=== PATIENT | female | born 1980 | race African-American/Black ===

== ENCOUNTER 2016-06-17 14:16 | Emergency (ER) | payer OTHER ==
[~2016-06-17 14:16] MED LIST: ATOR40TA59 PO; CEFU500T46 PO; DEXT30TA2 PO; ELET40TA PO; HYDR-963 PO; MEDR150D3 IM; MELO-150 PO; MICO1KIT79 VG; ONDA4TAB7 PO; OXYC5TAB PO; SERT50TA PO; TIZA4TAB PO
[2016-06-17] MEDS ORDERED: ONDA4TAB10 PO (14:40)
[2016-06-17] MEDS ORDERED: ONDANSETRON ODT 4 MG TAB.RAPDIS ONE (14:45)
[2016-06-17] MEDS: ONDANSETRON ODT 4 MG TAB.RAPDIS PO ONE (14:48)
--- NOTE | 2016-06-17 15:08 | ED.ADGEN ---
Past History Past Medical History: Hypothyroid, Migraines, Other Past Surgical History: Other Smoking: Cigarettes, Less than 1pk/day Alcohol Use: None Drug Use: None Adult General HPI HPI Patient is a 36-year-old female presents emergency department complaining of a four-day history of nausea, vomiting, diarrhea. This started after eating what she believes was some bad [place] food. She denies any fever or chills. Patient has been taking [id number] remedies without satisfactory relief. Review of Systems Review of Systems Constitutional: Denies fever or chills [] Eyes: Denies change in visual acuity, redness, or eye pain [] HENT: Denies nasal congestion or sore throat [] Respiratory: Denies cough or shortness of breath [] Cardiovascular: No additional information not addressed in HPI [] GI: Denies abdominal pain, nausea, vomiting, bloody stools or diarrhea [] : Denies dysuria or hematuria [] Musculoskeletal: Denies back pain or joint pain [] Integument: Denies rash or skin lesions [] Neurologic: Denies headache, focal weakness or sensory changes [] Endocrine: Denies polyuria or polydipsia [] Current Medications Current Medications Current Medications Medications (Trade) Dose Ordered Sig/Neena Start Time Stop Time Status Last Admin Dose Admin Ondansetron HCl (Zofran Odt) 4 mg 1X ONCE 06/17/16 14:45 06/17/16 14:55 DC 06/17/16 14:48 4 MG Allergies Allergies Allergies Coded Allergies Type Severity Reaction Last Updated Verified mold Allergy Intermediate Swelling 06/17/16 Yes pecan nut Allergy Intermediate Itching 06/17/16 Yes tramadol Allergy Intermediate Rash 07/21/14 Yes coconut oil Allergy Mild Itching 07/21/14 Yes strawberry Allergy Mild Itching 07/21/14 Yes Physical Exam Physical Exam Constitutional: Well developed, well nourished, no acute distress, non-toxic appearance. [] HENT: Normocephalic, atraumatic, bilateral external ears normal, oropharynx moist, no oral exudates, nose normal. [] Eyes: PERRLA, EOMI, conjunctiva normal, no discharge. [] Neck: Normal range of motion, no tenderness, supple, no stridor. [] Cardiovascular:Heart rate regular rhythm, no murmur [] Lungs & Thorax: Bilateral breath sounds clear to auscultation [] Abdomen: Bowel sounds normal, soft, no tenderness, no masses, no pulsatile masses. [] Skin: Warm, dry, no erythema, no rash. [] Back: No tenderness, no CVA tenderness. [] Extremities: No tenderness, no cyanosis, no clubbing, ROM intact, no edema. [] Neurologic: Alert and oriented X 3, normal motor function, normal sensory function, no focal deficits noted. [] Psychologic: Affect normal, judgement normal, mood normal. [] Current Patient Data Vital Signs Vital Signs Date Time Temp Pulse Resp B/P Pulse Ox O2 Delivery O2 Flow Rate FiO2 06/17/16 14:16 98.4 95 18 100 Room Air EKG EKG [] Radiology/Procedures Radiology/Procedures [] Course & Med Decision Making Course & Med Decision Making Pertinent Labs and Imaging studies reviewed. (See chart for details) Indigorafal here in emergency department. She is going on with prescription for the same. She is given supportive care and follow-up instructions. [] Final Impression Final Impression Nausea and vomiting Diarrhea [] Problems: Dragon Disclaimer Dragon Disclaimer This electronic medical record was generated, in whole or in part, using a voice recognition dictation system. NETO BUSTAMANTE MD Jun 17, 2016 15:08
[2016-06-17 15:35] VITALS: BP 130/84
== END 2016-06-17 15:35 | disposition home or self-care (01) ==
LOC: ER 14:16
DX: R11.2 Nausea with vomiting, unspecified (principal); R19.7 Diarrhea, unspecified; E03.9 Hypothyroidism, unspecified; G43.909 Migraine, unspecified, not intractable, without status migrainosus; F17.210 Nicotine dependence, cigarettes, uncomplicated; Z88.6 Allergy status to analgesic agent; Z91.018 Allergy to other foods; Z91.048 Other nonmedicinal substance allergy status
CPT/HCPCS: 99283; Q0162

== ENCOUNTER → 2016-08-06 | Outpatient (CLI) | payer OTHER ==
[~2016-08-06] MED LIST changes: -MELO-150 PO; +MELO15TA23 PO; +ONDA4TAB10 PO
[2016-08-07 03:09] LABS: THYROXINE 8.5 ug/dL (4.5-12.0)
== END | disposition home or self-care (01) ==
LOC: LAB 12:54
PROVIDERS: ATTEND Specialist
DX: E07.1 Dyshormogenetic goiter (principal)
CPT/HCPCS: 36415; 84436; 84443; 84480

== ENCOUNTER 2017-03-20 05:24 | Emergency (ER) | payer OTHER ==
[~2017-03-20] VITALS: Ht 170.2 cm; Wt 73.5 kg
[~2017-03-20 05:24] MED LIST changes: -OXYC5TAB PO; +OXYC5TAB95 PO
[2017-03-20 06:10] LABS: INFLUENZA A PATIENT NEGATIVE (NEGATIVE); INFLUENZA B PATIENT POSITIVE (NEGATIVE)
--- NOTE | 2017-03-20 06:11 | PHYS DOC ---
Past History Past Medical History: Hypothyroid, Migraines Past Surgical History: No Surgical History Smoking: Cigarettes, Less than 1pk/day Alcohol Use: None Drug Use: None Adult General Chief Complaint Chief Complaint: GENERALIZED BODY ACHES HPI HPI Patient is a 37-year-old female who presents with complaints of discomfort with breathing and generalized body aches. Patient denies any significant previous medical history. Patient has been exposed to the flu and family members were having similar symptoms to her. Patient denies any rashes, swelling, neck pain, abdominal pain, chest pain. The discomfort expressed is only when she takes a deep breath. Patient states she has been having symptoms for 2 days. Review of Systems Review of Systems Constitutional: Denies fever or chills [] HENT: Yes to sore throat Respiratory: Discomfort with inspiration Cardiovascular: No chest pain GI: Denies abdominal pain, nausea, vomiting, : Denies dysuria or hematuria [] Musculoskeletal: Diffuse muscle aches Integument: Denies rash or skin lesions [] Neurologic: Denies headache, focal weakness or sensory changes [] All other systems were reviewed and found to be within normal limits, except as documented in this note. Allergies Allergies Allergies Coded Allergies Type Severity Reaction Last Updated Verified mold Allergy Intermediate Swelling 06/17/16 Yes pecan nut Allergy Intermediate Itching 06/17/16 Yes tramadol Allergy Intermediate Rash 07/21/14 Yes coconut oil Allergy Mild Itching 07/21/14 Yes strawberry Allergy Mild Itching 07/21/14 Yes Physical Exam Physical Exam Constitutional: Well developed, well nourished, mild distress, non-toxic appearance. [] HENT: Normocephalic, atraumatic, tympanic membranes normal, oropharynx moist, no oral exudates, nose normal. Airways patent Eyes: EOMI, conjunctiva normal, no discharge. [] Neck: Normal range of motion, no tenderness, supple, no stridor. No meningeal signs, no LAD Cardiovascular:Heart rate regular rhythm, no murmur, equal pulses, no tachypnea Lungs & Thorax: Bilateral breath sounds clear to auscultation [] Abdomen: Bowel sounds normal, soft, no tenderness, no masses, no pulsatile masses. [] Skin: Warm, dry, no erythema, no rash. [] Back: No tenderness, no CVA tenderness. [] Extremities: No tenderness, no signs of DVT, ROM intact, no edema. [] Neurologic: Alert and oriented X 3, normal motor function, ambulates in the ED with normal gait and without assistance, no focal deficits noted. [] Psychologic: Affect normal, judgement normal, mood normal. [] Current Patient Data Vital Signs Vital Signs Date Time Temp Pulse Resp B/P (MAP) Pulse Ox O2 Delivery O2 Flow Rate FiO2 03/20/17 05:30 99.4 107 18 98 Room Air EKG EKG [] Radiology/Procedures Radiology/Procedures CXR: prelim read no acute disease[] Course & Med Decision Making Course & Med Decision Making Pertinent Labs and Imaging studies reviewed. (See chart for details) 0711 pt resting comfortably. Strict return precautions have been discussed. [] Dragon Disclaimer Dragon Disclaimer This electronic medical record was generated, in whole or in part, using a voice recognition dictation system. Departure Departure: Impression: Primary Impression: Influenza B Disposition: HOME, SELF-CARE Condition: STABLE Referrals: EDWARD HALLMAN (PCP) Please follow with your doctor in 2-4 days for recheck and re-evaluation Patient Instructions: Bird Flu, Titus Influenza Viruses Hermelindo NOBLE MD Mar 20, 2017 06:11
[2017-03-20] MEDS ORDERED: IBUPROFEN 600 MG TABLET. PO ONE (06:30)
[2017-03-20] MEDS ORDERED: ACETAMINOPHEN 500 MG TABLET PO ONE (06:30)
--- NOTE | 2017-03-20 07:22 | RAD ---
2 view CXR: Clinical indications: Dyspnea. Positive influenza B. Comparison: July 20, 2014. Findings: There is a small left lower lobe lung infiltrate. No pleural effusion or pneumothorax is seen. The heart size, pulmonary vasculature, mediastinum and both dennis are unremarkable. The osseous structures appear intact. Impression: Left lower lobe lung infiltrate consistent with pneumonia.. Note-this discrepancy was called to the emergency room physician at 7:19 AM on March 20, 2017.
[2017-03-20] MEDS ORDERED: AZIT250T6 PO (07:23)
[2017-03-20 07:25] VITALS: BP 124/82
== END 2017-03-20 07:25 | disposition home or self-care (01) ==
LOC: ER 05:24
DX: J10.1 Influenza due to other identified influenza virus with other respiratory manifestations (principal); E03.9 Hypothyroidism, unspecified; G43.909 Migraine, unspecified, not intractable, without status migrainosus; F17.210 Nicotine dependence, cigarettes, uncomplicated; Z88.6 Allergy status to analgesic agent; Z91.010 Allergy to peanuts; Z91.018 Allergy to other foods; Z91.048 Other nonmedicinal substance allergy status
CPT/HCPCS: 71020; 87804; 99285-25

== ENCOUNTER → 2017-04-02 | Outpatient (CLI) | payer OTHER ==
[2017-03-20 07:25] VITALS: BP 124/82
[~2017-04-02] MED LIST changes: +AZIT250T6 PO
[2017-04-03 02:08] LABS: THYROXINE 9.9 ug/dL (4.5-12.0)
== END | disposition home or self-care (01) ==
LOC: LAB 11:34
PROVIDERS: ATTEND Specialist
DX: E07.1 Dyshormogenetic goiter (principal); F17.210 Nicotine dependence, cigarettes, uncomplicated
CPT/HCPCS: 36415; 84436; 84443; 84480

== ENCOUNTER → 2017-04-22 | Outpatient (CLI) | payer OTHER ==
[2017-04-22 15:13] LABS: ALBUMIN 4.1 g/dL (3.4-5.0); ALBUMIN/GLOBULIN RATIO 1.1 (1.0-1.7); BASO # 0.1 x10^3/uL (0.0-0.2); BASO % 1 % (0-3); CALCIUM 9.2 mg/dL (8.5-10.1); CREATININE 0.6 mg/dL (0.6-1.0); EOS # 0.1 x10^3/uL (0.0-0.7); EOS % 2 % (0-3); GFR 137.7; HEMATOCRIT 42.4 % (36.0-47.0); HEMOGLOBIN 14.3 g/dL (12.0-15.5); LYMPH # 2.6 x10^3/uL (1.0-4.8); LYMPH % 40 % (24-48); MEAN CORPUSCULAR HEMOGLOBIN 29 pg (25-35); MEAN CORPUSCULAR HGB CONC 34 g/dL (31-37); MEAN CORPUSCULAR VOLUME 86 fL (79-100); MONO # 0.6 x10^3/uL (0.0-1.1); MONO % 10 % (0-9); NEUT % 47 % (31-73); PLATELET COUNT 315 x10^3/uL (140-400); POTASSIUM 3.2 mmol/L (3.5-5.1); RED BLOOD COUNT 4.96 x10^6/uL (3.50-5.40); RED CELL DISTRIBUTION WIDTH 14.4 % (11.5-14.5); TOTAL BILIRUBIN 0.5 mg/dL (0.2-1.0); TOTAL PROTEIN 7.8 g/dL (6.4-8.2); WHITE BLOOD COUNT 6.3 x10^3/uL (4.0-11.0)
[2017-04-23 03:10] LABS: THYROXINE 9.3 ug/dL (4.5-12.0)
== END | disposition home or self-care (01) ==
LOC: LAB 14:15
PROVIDERS: ATTEND Specialist
DX: E03.9 Hypothyroidism, unspecified (principal); F17.210 Nicotine dependence, cigarettes, uncomplicated; Z72.89 Other problems related to lifestyle
CPT/HCPCS: 36415; 80053; 84436; 84443; 84480; 85025

== ENCOUNTER 2018-04-05 17:37 | Emergency (ER) | payer OTHER ==
[~2018-04-05 17:37] MED LIST changes: +HYDR-3136 PO; -HYDR-963 PO; +OXYC5TAB4 PO; -OXYC5TAB95 PO
--- NOTE | 2018-04-05 18:47 | PHYS DOC ---
Past History Past Medical History: Hypothyroid, Migraines Past Surgical History: No Surgical History Smoking: Cigarettes, Less than 1pk/day Alcohol Use: None Drug Use: None Adult General Chief Complaint Chief Complaint: NAUSEA/VOMITING/DIARRHEA HPI HPI Patient is a 38 year old female who presents with complaint of nausea, vomiting , and headache. Patient states her symptoms started yesterday and have worsened throughout the day today. Patient states that she has not been able to keep down solids or liquids. This had multiple episodes of vomiting at home. Patient was exposed to a sick contact, her significant other, who had similar symptoms. Denies any known fevers but has "felt warm." Denies any history of similar symptoms. Patient states that she has generalized abdominal discomfort but denies any sharp pain or tenderness. Denies diarrhea. Review of Systems Review of Systems Constitutional: subjective fever, denies chills [] Eyes: Denies change in visual acuity, redness, or eye pain [] HENT: Denies nasal congestion or sore throat [] Respiratory: Denies cough or shortness of breath [] Cardiovascular: denies chest pain or edema [] GI: nausea, vomiting, denies abdominal painbloody stools or diarrhea [] : Denies dysuria or hematuria [] Musculoskeletal: Denies back pain or joint pain [] Integument: Denies rash or skin lesions [] Neurologic: headache, denies focal weakness or sensory changes [] All other systems were reviewed and found to be within normal limits, except as documented in this note. Current Medications Current Medications Current Medications Medications (Trade) Dose Ordered Sig/Neena Start Time Stop Time Status Last Admin Dose Admin Ketorolac Tromethamine (Toradol 30mg Vial) 30 mg 1X ONCE 04/05/18 18:45 04/05/18 18:46 UNV Sodium Chloride 1,000 ml @ 1,000 mls/hr Q1H 04/05/18 18:38 04/05/18 19:37 UNV Allergies Allergies Allergies Coded Allergies Type Severity Reaction Last Updated Verified mold Allergy Intermediate Swelling 06/17/16 Yes pecan nut Allergy Intermediate Itching 06/17/16 Yes tramadol Allergy Intermediate Rash 07/21/14 Yes coconut oil Allergy Mild Itching 07/21/14 Yes strawberry Allergy Mild Itching 07/21/14 Yes Physical Exam Physical Exam Constitutional: Well developed, well nourished, alert, appears ill. [] HENT: Normocephalic, atraumatic, bilateral external ears normal, oropharynx thickened saliva, no oral exudates, nose normal. [] Eyes: PERRLA, EOMI, conjunctiva normal, no discharge. [] Neck: Normal range of motion, no tenderness, supple, no stridor. [] Cardiovascular:Heart rate tachycardic, regular rhythm, no murmur [] Lungs & Thorax: Bilateral breath sounds clear to auscultation [] Abdomen: Bowel sounds normal, soft, no tenderness, no masses, no pulsatile masses. [] Skin: Warm, dry, no erythema, no rash. [] Back: No tenderness, no CVA tenderness. [] Extremities: No tenderness, no cyanosis, no clubbing, ROM intact, no edema. [] Neurologic: Alert and oriented X 3, normal motor function, normal sensory function, no focal deficits noted. [] Current Patient Data Vital Signs Vital Signs Date Time Temp Pulse Resp B/P (MAP) Pulse Ox O2 Delivery O2 Flow Rate FiO2 04/05/18 18:06 98.5 96 22 100 Room Air Lab Results Laboratory Tests Test 04/05/18 18:00 04/05/18 20:04 04/05/18 20:14 White Blood Count 6.7 x10^3/uL Red Blood Count 4.77 x10^6/uL Hemoglobin 13.4 g/dL Hematocrit 40.4 % Mean Corpuscular Volume 85 fL Mean Corpuscular Hemoglobin 28 pg Mean Corpuscular Hemoglobin Concent 33 g/dL Red Cell Distribution Width 13.3 % Platelet Count 304 x10^3/uL Neutrophils (%) (Auto) 83 % Lymphocytes (%) (Auto) 7 % Monocytes (%) (Auto) 8 % Eosinophils (%) (Auto) 2 % Basophils (%) (Auto) 0 % Neutrophils # (Auto) 5.6 x10^3uL Lymphocytes # (Auto) 0.4 x10^3/uL Monocytes # (Auto) 0.6 x10^3/uL Eosinophils # (Auto) 0.1 x10^3/uL Basophils # (Auto) 0.0 x10^3/uL Sodium Level 139 mmol/L Potassium Level 3.7 mmol/L Chloride Level 103 mmol/L Carbon Dioxide Level 28 mmol/L Anion Gap 8 Blood Urea Nitrogen 5 mg/dL Creatinine 0.7 mg/dL Estimated GFR (Cockcroft-Gault) 114.6 BUN/Creatinine Ratio 7 Glucose Level 86 mg/dL Calcium Level 8.7 mg/dL Total Bilirubin 0.7 mg/dL Aspartate Amino Transf (AST/SGOT) 23 U/L Alanine Aminotransferase (ALT/SGPT) 24 U/L Alkaline Phosphatase 45 U/L Total Protein 7.2 g/dL Albumin 3.4 g/dL Albumin/Globulin Ratio 0.9 Lipase 60 U/L Urine Collection Type Unknown Urine Color Colorless Urine Clarity Clear Urine pH 7.0 Urine Specific [place] 1.015 Urine Protein Neg Urine Glucose (UA) Neg mg/dL Urine Ketones (Stick) Neg mg/dL Urine Blood Neg Urine Nitrite Neg Urine Bilirubin Neg Urine Urobilinogen Dipstick 0.2 mg/dL Urine Leukocyte Esterase Neg Urine RBC Occ /HPF Urine WBC Occ /HPF Urine Squamous Epithelial Cells Few /LPF Urine Bacteria Few /HPF Bedside Urine HCG, Qualitative hcg negative Current Medications Medications (Trade) Dose Ordered Sig/Neena Route PRN Reason Start Time Stop Time Status Last Admin Dose Admin Sodium Chloride 1,000 ml @ 1,000 mls/hr Q1H IV 04/05/18 18:38 04/05/18 19:37 DC 04/05/18 19:07 Ketorolac Tromethamine (Toradol 30mg Vial) 30 mg 1X ONCE IV 04/05/18 18:45 04/05/18 18:47 DC 04/05/18 19:08 Sodium Chloride 1,000 ml @ 1,000 mls/hr 1X ONCE IV 04/05/18 20:00 04/05/18 20:59 04/05/18 20:07 Metoclopramide HCl (Reglan Vial) 10 mg 1X ONCE IV 04/05/18 20:00 04/05/18 20:11 DC 04/05/18 20:08 Diphenhydramine HCl (Benadryl) 25 mg 1X ONCE IVP 04/05/18 20:00 04/05/18 20:11 DC 04/05/18 20:08 EKG EKG Not performed[] Radiology/Procedures Radiology/Procedures Not performed[] Course & Med Decision Making Course & Med Decision Making Pertinent Labs and Imaging studies reviewed. (See chart for details) Patient was given 2 L of IV fluids, Toradol, Reglan, and Benadryl. On reevaluation, patient states that she is feeling better at this time. Lab work and urinalysis were unremarkable. Patient's symptoms appear consistent with viral gastroenteritis. Patient was prescribed Zofran and Fioricet for continued outpatient treatment of symptoms. Advised follow-up with primary doctor in 4 days for reevaluation and return to emergency department for any worsening symptoms. Patient was understanding and in agreement with treatment plan.[] Dragon Disclaimer Dragon Disclaimer This electronic medical record was generated, in whole or in part, using a voice recognition dictation system. Departure Departure: Impression: Primary Impression: Viral gastroenteritis Disposition: HOME, SELF-CARE Condition: IMPROVED Referrals: EDWARD HALLMAN (PCP) Patient Instructions: Viral Gastroenteritis Additional Instructions: Follow-up with your primary doctor in the next 4 days for reevaluation. Return to the emergency department for any worsening symptoms. Scripts Ondansetron Hcl (ZOFRAN) 4 Mg Tablet 1 TAB PO Q8HRS PRN for NAUSEA/VOMITING, #20 TAB Prov: SABRINA RAM MD 04/05/18 Butalb/Acetaminophen/Caffeine ([id number] [id number]) 1 Each Tablet 1 EACH PO Q4HRS PRN for HEADACHE, #20 TAB Prov: SABRINA RAM MD 04/05/18 SABRINA RAM MD Apr 05, 2018 18:47
[2018-04-05 18:55] LABS: BASO % 0 % (0-3); EOS # 0.1 x10^3/uL (0.0-0.7); EOS % 2 % (0-3); HEMATOCRIT 40.4 % (36.0-47.0); HEMOGLOBIN 13.4 g/dL (12.0-15.5); LYMPH # 0.4 x10^3/uL (1.0-4.8); LYMPH % 7 % (24-48); MEAN CORPUSCULAR HEMOGLOBIN 28 pg (25-35); MEAN CORPUSCULAR HGB CONC 33 g/dL (31-37); MEAN CORPUSCULAR VOLUME 85 fL (79-100); MONO # 0.6 x10^3/uL (0.0-1.1); MONO % 8 % (0-9); NEUT # 5.6 x10^3uL (1.8-7.7); NEUT % 83 % (31-73); PLATELET COUNT 304 x10^3/uL (140-400); RED BLOOD COUNT 4.77 x10^6/uL (3.50-5.40); RED CELL DISTRIBUTION WIDTH 13.3 % (11.5-14.5); WHITE BLOOD COUNT 6.7 x10^3/uL (4.0-11.0)
[2018-04-05 19:04] LABS: ALBUMIN 3.4 g/dL (3.4-5.0); ALBUMIN/GLOBULIN RATIO 0.9 (1.0-1.7); CALCIUM 8.7 mg/dL (8.5-10.1); CREATININE 0.7 mg/dL (0.6-1.0); GFR 114.6; POTASSIUM 3.7 mmol/L (3.5-5.1); TOTAL BILIRUBIN 0.7 mg/dL (0.2-1.0); TOTAL PROTEIN 7.2 g/dL (6.4-8.2)
[2018-04-05] MEDS: IV NORMAL SALINE 1,000ML 1,000 ML IV SCH (19:07)
[2018-04-05] MEDS: KETOROLAC 30 MG/ML VIAL. IV ONE (19:08)
[2018-04-05] MEDS: IV NORMAL SALINE 1,000ML 1,000 ML IV ONE (20:07)
[2018-04-05] MEDS: diphenhydrAMINE 50 MG/ML VIAL IVP ONE (20:08)
[2018-04-05] MEDS: METOCLOPRAMIDE HCL 10 MG/2 ML VIAL. IV ONE (20:08)
[2018-04-05 20:20] LABS: CLARITY,URINE CLEAR; COLOR,URINE COLORLESS
[2018-04-05 20:21] LABS: BILIRUBIN,URINE NEG (NEG); GLUCOSE,URINE NEG (NEG); NITRITE,URINE NEG (NEG); UROBILINOGEN,URINE 0.2 mg/dL (0.2 mg/dL)
[2018-04-05 20:25] LABS: BACTERIA,URINE FEW /HPF (0-FEW); RBC,URINE OCC /HPF (0-2); SQUAMOUS EPITHELIAL CELL,UR FEW /LPF; WBC,URINE OCC /HPF (0-4)
[2018-04-05 20:30] VITALS: BP 127/84
[2018-04-05] MEDS ORDERED: BUTA1TAB23 PO (20:53)
[2018-04-05] MEDS ORDERED: ONDA4TAB7 PO (20:53)
== END 2018-04-05 21:00 | disposition home or self-care (01) ==
LOC: ER 17:37
DX: A08.4 Viral intestinal infection, unspecified (principal); E03.9 Hypothyroidism, unspecified; G43.909 Migraine, unspecified, not intractable, without status migrainosus; F17.210 Nicotine dependence, cigarettes, uncomplicated; Z88.6 Allergy status to analgesic agent; Z91.018 Allergy to other foods; Z91.048 Other nonmedicinal substance allergy status
CPT/HCPCS: 36415; 80053; 81001; 81025; 83690; 85025; 96361; 96374; 96375; 99283; J1200; J1885; J2765; J7030

== ENCOUNTER 2018-10-13 06:13 | Emergency (ER) | payer OTHER ==
[~2018-10-13] VITALS: Ht 170.2 cm; Wt 68.0 kg
[~2018-10-13 06:13] MED LIST changes: +BUTA1TAB23 PO
--- NOTE | 2018-10-13 06:45 | PHYS DOC ---
Past History Past Medical History: Hypothyroid, Migraines Past Surgical History: No Surgical History Smoking: Cigarettes, Quit Less Than 1 Year Alcohol Use: None Drug Use: None Adult General Chief Complaint Chief Complaint: ABDOMINAL PAIN HPI HPI Patient is a 38-year-old female presents complaining of right-sided sharp abdominal pain that started several hours prior to arrival. She had a little bit of this yesterday. Denies any blood in the urine nor dysuria. No previous history of this. Nothing makes the symptoms better or worse. She has been having diarrhea for the past 3 days. No blood in the stool. She had some nausea with the discomfort this morning. No home medicines have been taken. No trauma. No fever. No recent travel.[] Review of Systems Review of Systems Constitutional: Denies fever or chills [] Eyes: Denies change in visual acuity, redness, or eye pain [] HENT: Denies nasal congestion or sore throat [] Respiratory: Denies cough or shortness of breath [] Cardiovascular: No chest pain or palpitations[] GI: See history of present illness[] : Denies dysuria or hematuria [] Musculoskeletal: Denies back pain or joint pain [] Integument: Denies rash or skin lesions [] Neurologic: Denies headache, focal weakness or sensory changes [] Endocrine: Denies polyuria or polydipsia [] All other systems were reviewed and found to be within normal limits, except as documented in this note. Family History Family History There is a family History of kidney stones and high blood pressure Allergies Allergies Allergies Coded Allergies Type Severity Reaction Last Updated Verified mold Allergy Intermediate Swelling 06/17/16 Yes pecan nut Allergy Intermediate Itching 06/17/16 Yes tramadol Allergy Intermediate Rash 07/21/14 Yes coconut oil Allergy Mild Itching 07/21/14 Yes strawberry Allergy Mild Itching 07/21/14 Yes Physical Exam Physical Exam Constitutional: Well developed, well nourished, mild to moderate discomfort, non-toxic appearance. [] HENT: Normocephalic, atraumatic, bilateral external ears normal, oropharynx moist, no oral exudates, nose normal. [] Eyes: PERRLA, EOMI, conjunctiva normal, no discharge. [] Neck: Normal range of motion, no tenderness, supple, no stridor. [] Cardiovascular:Heart rate regular rhythm, no murmur [] Lungs & Thorax: Bilateral breath sounds clear to auscultation [] Abdomen: Bowel sounds normal, soft, no tenderness, no rebound, no guarding, no rigidity, no masses, no pulsatile masses. [] Skin: Warm, dry, no erythema, no rash. [] Back: No tenderness, no CVA tenderness. [] Extremities: No tenderness, no cyanosis, no clubbing, ROM intact, no edema. [] Neurologic: Alert and oriented X 3, normal motor function, normal sensory function, no focal deficits noted. [] Psychologic: Affect normal, judgement normal, mood normal. [] Current Patient Data Vital Signs Vital Signs Date Time Temp Pulse Resp B/P (MAP) Pulse Ox O2 Delivery O2 Flow Rate FiO2 10/13/18 06:19 97.7 90 20 100 Room Air Lab Results Laboratory Tests Test 10/13/18 06:34 POC Urine HCG, Qualitative hcg negative (Negative) EKG EKG [] Radiology/Procedures Radiology/Procedures EXAM: CT Abdomen and Pelvis without IV contrast CLINICAL HISTORY: Right lower quadrant pain, nausea vomiting, diarrhea. COMPARISON: CT from 07/21/2014 TECHNIQUE: Helical CT of the abdomen and pelvis without intravenous contrast. Axial, coronal and sagittal reformatted images were generated. PQRS compliance statement - One or more of the following individualized dose reduction techniques were utilized for this study: 1. Automated exposure control 2. Adjustment of the mA and/or kV according to patient size 3. Use of iterative reconstruction technique FINDINGS: Lack of intravenous contrast limits evaluation of solid organs, vasculature, and lymph nodes. Lower chest: Emphysematous changes are seen within the lung bases. Abdomen and Pelvis: No focal liver lesion. Gallbladder is normal. No biliary ductal dilatation. Spleen is unremarkable. Adrenal glands and pancreas are unremarkable. Punctate nonobstructing calculus in the interpolar right kidney (series 2 image 54). No definite ureteral or bladder calculus. The bladder is decompressed. No hydronephrosis or hydroureter. No renal lesion. Appendix is normal. No small or large bowel dilatation. Moderate colonic stool content. There is mild fat infiltration about the descending colon and sigmoid colon. Trace free pelvic fluid. No abdominal ascites. No loculated abdominal or pelvic collection. No pneumoperitoneum. Small fat-containing periumbilical hernia. No abdominal or pelvic lymphadenopathy by size criteria although a few mildly prominent iliac chain and retroperitoneal lymph nodes are seen, likely reactive. Bones: Symphysis pubis degenerative changes are seen. IMPRESSION: 1. Fat infiltration about the descending colon and sigmoid colon may be seen with colitis, possibly infectious or inflammatory in nature. Ischemic colitis may also have similar appearance although less likely. 2. No renal tract calculus. 3. Bladder is unremarkable. [] Course & Med Decision Making Course & Med Decision Making Pertinent Labs and Imaging studies reviewed. (See chart for details) ED course: Patient arrived, was placed in bed, and tolerated exam well. She was noted to be hypokalemic and so was given oral supplementation. She was given IV fluids as well as pain and nausea medicine. She was transported to and from radiology without any complications. After return of the imaging findings and laboratory findings, these were discussed with the patient who voiced understanding. All questions were answered. She was discharged in improved condition. Medical decision making: Patient appears to have colitis. It does not appear to be an ischemic colitis. We'll start her on antibiotics. She was also noted to be hypokalemic and will continue supplementation of this as an outpatient. No evidence of appendicitis, diverticulitis, kidney stone, urinary tract infection, ectopic , cholecystitis, nor other significant intra-abdominal pathology.[] Dragon Disclaimer Dragon Disclaimer This electronic medical record was generated, in whole or in part, using a voice recognition dictation system. Departure Departure: Impression: Primary Impression: Colitis Additional Impressions: Diarrhea Hypokalemia Disposition: HOME, SELF-CARE Condition: IMPROVED Referrals: EDWARD HALLMAN (PCP) Follow-up in 2 days Patient Instructions: Colitis, Diarrhea, Diet for Diarrhea, Adult, Hypokalemia Additional Instructions: Drink plenty of fluids, frequent small sips. No fatty foods, no milk, and no pepper for the next 48 hours. For the next 48 hours eat a diet rich in carbohydrates with foods such as bananas, rice, applesauce, and toast. Follow-up with your regular doctor in 2 days. Return to the ER if worsening pain, unable to tolerate liquids, or any other concerns. Scripts Hyoscyamine Sulfate (LEVSIN) 0.125 Mg Tablet 0.125 MG PO QID for abdominal pain/cramping, #30 TAB Prov: ALMA ALVARADO DO 7/24/19 Sulfamethoxazole/Trimethoprim (BACTRIM DS TABLET) 1 Each Tablet 1 TAB PO BID for colitis, #20 TAB Prov: JACYALISHAMARTINALMA STEPHENS 10/13/18 Metronidazole (FLAGYL) 500 Mg Tablet 500 MG PO QID for colitis for 10 Days, #40 TAB Prov: ALMA ALVARADO DO 10/13/18 Metoclopramide Hcl (REGLAN) 10 Mg Tablet 10 MG PO QID for nausea and vomiting, #30 TAB Prov: ALMA ALVARADO DO 10/13/18 Meloxicam (MELOXICAM) 7.5 Mg Tablet 7.5 MG PO DAILY for PAIN, #20 TAB Prov: ALMA ALVARADO DO 10/13/18 Potassium Chloride (KLOR-CON M20) 20 Meq Tab.er.prt 2 TAB PO DAILY for hypokalemia, #10 TAB 0 Refills Prov: ALMA ALVARADO DO 10/13/18 Problem Qualifiers Additional Impressions: Diarrhea Diarrhea type: unspecified type Qualified Codes: R19.7 - Diarrhea, unspecified ALMA ALVARADO DO Oct 13, 2018 06:45
[2018-10-13] MEDS ORDERED: KETOROLAC 30 MG/ML VIAL. IV ONE (07:00)
[2018-10-13] MEDS ORDERED: IV NORMAL SALINE 1,000ML 1,000 ML IV SCH (07:00)
[2018-10-13] MEDS ORDERED: PROCHLORPERAZINE 10 MG/2 ML VIAL. IV ONE (07:00)
[2018-10-13 07:12] LABS: BILIRUBIN,URINE NEG (NEG); CLARITY,URINE CLEAR; COLOR,URINE YELLOW; GLUCOSE,URINE NEG (NEG); NITRITE,URINE NEG (NEG); UROBILINOGEN,URINE 0.2 mg/dL (0.2 mg/dL)
[2018-10-13 07:13] LABS: BASO # 0.1 x10^3/uL (0.0-0.2); BASO % 1 % (0-3); EOS # 0.5 x10^3/uL (0.0-0.7); EOS % 6 % (0-3); HEMATOCRIT 41.9 % (36.0-47.0); HEMOGLOBIN 13.9 g/dL (12.0-15.5); LYMPH # 3.4 x10^3/uL (1.0-4.8); LYMPH % 41 % (24-48); MEAN CORPUSCULAR HEMOGLOBIN 28 pg (25-35); MEAN CORPUSCULAR HGB CONC 33 g/dL (31-37); MEAN CORPUSCULAR VOLUME 85 fL (79-100); MONO # 0.7 x10^3/uL (0.0-1.1); MONO % 9 % (0-9); NEUT # 3.6 x10^3uL (1.8-7.7); NEUT % 44 % (31-73); PLATELET COUNT 392 x10^3/uL (140-400); RED BLOOD COUNT 4.93 x10^6/uL (3.50-5.40); RED CELL DISTRIBUTION WIDTH 13.2 % (11.5-14.5); WHITE BLOOD COUNT 8.3 x10^3/uL (4.0-11.0)
[2018-10-13 07:20] LABS: ALBUMIN 3.5 g/dL (3.4-5.0); ALBUMIN/GLOBULIN RATIO 0.9 (1.0-1.7); CALCIUM 9.2 mg/dL (8.5-10.1); CREATININE 0.8 mg/dL (0.6-1.0); GFR 98.2; TOTAL BILIRUBIN 0.4 mg/dL (0.2-1.0); TOTAL PROTEIN 7.3 g/dL (6.4-8.2)
[2018-10-13 07:37] LABS: POTASSIUM 2.9 mmol/L (3.5-5.1)
--- NOTE | 2018-10-13 07:50 | RAD ---
EXAM: CT Abdomen and Pelvis without IV contrast CLINICAL HISTORY: Right lower quadrant pain, nausea vomiting, diarrhea. COMPARISON: CT from 07/21/2014 TECHNIQUE: Helical CT of the abdomen and pelvis without intravenous contrast. Axial, coronal and sagittal reformatted images were generated. PQRS compliance statement - One or more of the following individualized dose reduction techniques were utilized for this study: 1. Automated exposure control 2. Adjustment of the mA and/or kV according to patient size 3. Use of iterative reconstruction technique FINDINGS: Lack of intravenous contrast limits evaluation of solid organs, vasculature, and lymph nodes. Lower chest: Emphysematous changes are seen within the lung bases. Abdomen and Pelvis: No focal liver lesion. Gallbladder is normal. No biliary ductal dilatation. Spleen is unremarkable. Adrenal glands and pancreas are unremarkable. Punctate nonobstructing calculus in the interpolar right kidney (series 2 image 54). No definite ureteral or bladder calculus. The bladder is decompressed. No hydronephrosis or hydroureter. No renal lesion. Appendix is normal. No small or large bowel dilatation. Moderate colonic stool content. There is mild fat infiltration about the descending colon and sigmoid colon. Trace free pelvic fluid. No abdominal ascites. No loculated abdominal or pelvic collection. No pneumoperitoneum. Small fat-containing periumbilical hernia. No abdominal or pelvic lymphadenopathy by size criteria although a few mildly prominent iliac chain and retroperitoneal lymph nodes are seen, likely reactive. Bones: Symphysis pubis degenerative changes are seen. IMPRESSION: 1. Fat infiltration about the descending colon and sigmoid colon may be seen with colitis, possibly infectious or inflammatory in nature. Ischemic colitis may also have similar appearance although less likely. 2. No renal tract calculus. 3. Bladder is unremarkable. Electronically signed by: Som Edwards MD (10/13/2018 7:47 AM) [facility]
[2018-10-13] MEDS ORDERED: POTASSIUM CHLORIDE 20 MEQ TABLET.ER. PO ONE (08:00)
[2018-10-13] MEDS ORDERED: HYOS0.1264 PO (08:37)
[2018-10-13] MEDS ORDERED: SULF1TAB24 PO (08:37)
[2018-10-13] MEDS ORDERED: METO10TA81 PO (08:37)
[2018-10-13] MEDS ORDERED: MELO7.5T29 PO (08:37)
[2018-10-13] MEDS ORDERED: METR500T PO (08:37)
[2018-10-13] MEDS ORDERED: POTA20TA4 PO (08:37)
[2018-10-13 08:40] VITALS: BP 103/56
== END 2018-10-13 08:45 | disposition home or self-care (01) ==
LOC: ER 06:13
DX: K52.9 Noninfective gastroenteritis and colitis, unspecified (principal); E87.6 Hypokalemia; E03.9 Hypothyroidism, unspecified; G43.909 Migraine, unspecified, not intractable, without status migrainosus; Z87.891 Personal history of nicotine dependence; Z91.018 Allergy to other foods; Z88.8 Allergy status to other drugs, medicaments and biological substances; Z91.048 Other nonmedicinal substance allergy status
CPT/HCPCS: 36415; 74176; 80053; 81003; 81025; 83690; 83735; 85025; 96361; 96374; 96375; 96376; 99285; J0780; J1885; J3010; J7030